=== PATIENT | male | born 1965 | race African-American/Black ===

== ENCOUNTER 2021-10-11 12:51 | Emergency (ER) | payer MEDICAID ==
[~2021-10-11] VITALS: Ht 175.3 cm; Wt 105.0 kg
[2021-10-11] MEDS ORDERED: HYDROCODONE/ACETAMINOPHEN 5/325MG TABLET PO ONE (14:00)
[2021-10-11] MEDS ORDERED: HYDR-4001 MT (14:00)
[2021-10-11 14:12] VITALS: BP 148/98
== END 2021-10-11 14:31 | disposition home or self-care (01) ==
LOC: ER 13:25
DX: Z76.0 Encounter for issue of repeat prescription (principal); M25.552 Pain in left hip; Z96.642 Presence of left artificial hip joint; I10 Essential (primary) hypertension; Z87.828 Personal history of other (healed) physical injury and trauma
CPT/HCPCS: 99283